=== PATIENT | female | born 1985 | race Caucasian/White ===

== ENCOUNTER 2017-06-30 17:56 | Emergency (ER) | payer MEDICAID ==
[~2017-06-30] VITALS: Ht 149.9 cm; Wt 99.8 kg
[~2017-06-30 17:56] MED LIST: ACDPT PO; ACHD5005 PO; ACHYD1T PO; AGM875T PO; ALPR0.25 PO; AMOX500C2 PO; ASPI1TAB17 PO; BSP10T PO; CHLO100T22 PO; CLIN300C3 PO; CLOT15CR6 TOP; CPR500T PO; CYCL10TA9; DCS100C PO; DICL25CA4 PO; FLUO10CA19 PO; FLUO20CA42 PO; FLUO40CA12 PO; HYDR-1231 PO; HYDR-34 PO; HYDR-757 PO; HYDR-91 PO; HYDR1TAB PO; IBP200T PO; IBP600T1 PO; IBP800T PO; IBUP800T26 PO; KETO75CA PO; NAPR-243 PO; NITR100C3; PREN1TAB39 PO; PREN1TAB71 PO; SULF-222 PO; SULF1TAB35 PO; SULF1TAB38 PO; TRAM50TA2; TRAZ-144 PO; TRAZ150T42 PO; ZLP10T PO
[2017-06-30] MEDS ORDERED: KETOROLAC 60 MG/2 ML VIAL IM STA (18:17)
--- NOTE | 2017-06-30 18:39 | ED EENT ---
History of Present Illness General Chief Complaint: Facial Problems Stated Complaint: POSSIBLE MRSA Nursing Triage Note: pt presents to ed with l sided facial pain/swelling x3 days. reports she had a pimple under her l nare and got alot of drainage from it. Source: patient Exam Limitations: no limitations History of Present Illness Date Seen by Provider: Jun 30, 2017 Time Seen by Provider: 18:39 Initial Comments 32-year-old female patient presents to the emergency department complaints of left-sided facial pain and swelling for 3 days. Patient denies fevers. Patient has a history of similar symptoms and of MRSA. Denies difficulty swallowing or difficulty breathing. Timing/Duration: abrupt Severity: moderate Location: other (3 onset) Prearrival Treatment: over the counter meds Modifying Factors: Worse With Other (worse with palpation) Allergies and Home Medications Allergies Coded Allergies: No Known Drug Allergies (Unverified , 04/20/13) Home Medications Amoxicillin 500 Mg Capsule, 1,000 MG PO BID Prescribed by: TAMY CUNHA on 06/30/171945 Fluoxetine HCl 40 Mg Capsule, 40 MG PO DAILY, (Reported) Hydrocodone/Acetaminophen 1 Each Tablet, 1 EACH PO Q4H PRN for PAIN Do not fill unless Bactrim is also filled Prescribed by: MAIRA CABRERA on 10/10/151543 Hydrocodone/Acetaminophen 1 Each Tablet, 1 EACH PO Q4H PRN for PAIN Prescribed by: MAIRA CABRERA on 01/31/162019 Sulfamethoxazole/Trimethoprim 1 Each Tablet, 1 EACH PO BID Prescribed by: MAIRA CABRERA on 10/10/151543 Sulfamethoxazole/Trimethoprim 1 Each Tablet, 1 EACH PO BID Prescribed by: MAIRA CABRERA on 01/31/162019 Sulfamethoxazole/Trimethoprim 1 Each Tablet, 2 EACH PO BID Prescribed by: TAMY CUNHA on 06/30/171943 Tramadol HCl 50 Mg Tablet, 50 MG PO Q4H PRN for pain Prescribed by: TAMY CUNHA on 06/30/171943 Review of Systems Constitutional: No chills, No fever, No malaise Eyes: No Symptoms Reported Ears: No Symptoms Reported Nose: see HPI, other (pimple inferior to the left nare with drainage) Mouth: see HPI, pain (left upper teeth), denies other (swelling left upper gums ) Throat: no symptoms reported Respiratory: no symptoms reported Cardiovascular: no symptoms reported Gastrointestinal: no symptoms reported Musculoskeletal: no symptoms reported Skin: see HPI Neurological: No Symptoms Reported All Other Systems Reviewed Negative Unless Noted: Yes (Negative excepted noted.) Past Gdrbmfb-Uxbocl-Bsshry Hx Patient Social History Alcohol Use: Denies Use Recreational Drug Use: No Type Used: Cigarettes Recent Foreign Travel: No Contact w/Someone Who Travel: No Recent Infectious Disease Expo: No Recent Hopitalizations: No Physical Abuse: No Sexual Abuse: No Mistreated: No Fear: No Immunizations Up To Date Tetanus Booster (TDap): Less than 5yrs Date of Influenza Vaccine: Dec 04, 2013 Surgeries History of Surgeries: Yes (facial cellulitis debridement) Surgeries: Orthopedic, Tonsillectomy Respiratory History of Respiratory Disorde: No Cardiovascular History of Cardiac Disorders: No Neurological History of Neurological Disord: No Reproductive System Hx Reproductive Disorders: No Sexually Transmitted Disease: No HIV/AIDS: No Female Reproductive Disorders: Denies Gastrointestinal History of Gastrointestinal Di: No Musculoskeletal History of Musculoskeletal Dis: No Endocrine History of Endocrine Disorders: No Cancer History of Cancer: No Psychosocial History of Psychiatric Problem: Yes Behavioral Health Disorders: PTSD, Bipolar Suicide Risk Score: 0 Integumentary History of Skin or Integumenta: Yes (MRSA) Blood Transfusions History of Blood Disorders: No Reviewed Nursing Assessment Reviewed/Agree w Nursing PMH: Yes Family Medical History Significant Family History: No Pertinent Family Hx Family Medial History: Diabetes mellitus 19 MOTHER FH: mental illness Hypertension 19 MOTHER No Family History of: AIDS Abdominal aortic aneurysm [place]fort's disease Alcoholism Alzheimer's disease Aphasia Arthritis Asthma Cancer of mouth Cardiovascular disease Cataracts Colon cancer Completed stroke Congenital disease Congenital heart disease Coronary thrombosis Cystic fibrosis Deafness or hearing loss Dementia Drug abuse Dysphasia Fibrocystic disease of breast Gastroenteritis Glaucoma Headache disorder Hypercholesterolemia Infertility Kidney disease Myocardial infarction Neoplasm Not obtainable due to adoption Osteoporosis Parkinson's disease Prostate cancer Psychosocial problem Respiratory disorder Seizure disorder Severe allergy Thyroid disease Tuberculosis Visual disorder Physical Exam Vital Signs Vital Signs - First Documented 06/30/17 18:07 Temp 97.4 Pulse 120 Resp 18 B/P (MAP) 127/99 (108) Pulse Ox 98 General Appearance: WD/WN, no apparent distress Eyes: bilateral eye normal inspection, bilateral eye PERRL, bilateral eye EOMI Ears: bilateral ear auricle normal, bilateral ear canal normal, bilateral ear TM normal Nose: other (mild erythema, swelling and induration inferior to the left nare without drainage. No evidence of fluctuance. Mild tenderness noted.) Mouth/Throat: pharynx normal, No dental tenderness, No excessive drooling, mandibular swelling (left mandibular swelling), maxillary swelling (left maxillary swelling), No trismus, No uvula swelling, No voice changes, other ( left facial swelling with mild erythema. 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 The complete inferior extent of the mandible is not included in the [id number]. The temporomandibular joints are normally aligned. The mandible is intact. There is no identified cortical or aggressive bone destruction. There is no periosteal reaction. The paranasal sinuses are well aerated without air-fluid level or frothy secretions. There is no mucosal thickening of the paranasal sinuses. The mastoid air cells and middle ears are well aerated bilaterally. The orbits are unremarkable in appearance. There is inflammatory stranding to the left of midline at the level of the mandible/maxilla. There is motion artifact at this level. There is no identified periapical lucency. There is no identified focus of soft tissue gas. There is no clearly identified drainable fluid collection on limited noncontrast assessment. There is no identified radiopaque foreign body. IMPRESSION: 1. Inflammatory stranding within the subcutaneous tissues to the left of midline at the level of the mandible/maxilla. This is not specific but may relate to cellulitis. 2. No clearly identified focal drainable fluid collection on noncontrast assessment which does reduce sensitivity for detection. 3. No CT evidence of osteomyelitis. 4. No identified periapical cyst. 5. No identified radiopaque foreign body. Dictated by: Dictated on workstation # [id number] Reviewed: Reviewed by Me (radiology report reviewed by me) Departure Communication (Admissions) Progress Notes Diagnostic findings discussed with the patient. Patient was given 1 dose of Toradol 60 mg IM, Bactrim DS, Cleocin, and a take-home pack of tramadol. Plan for discharge to home. Patient to follow-up with her PCP for recheck and further management. Impression Impression: Primary Impression: Cellulitis of face Disposition: HOME, SELF-CARE Condition: Improved Departure-Patient Inst. Decision time for Depature: 19:42 [place]: [facility] [place] (PCP/Family) Primary Care Physician Patient Instructions: Cellulitis (Skin Infection), Adult (DC) Add. Discharge Instructions: All discharge instructions reviewed with patient and/or family. Voiced understanding. Medications as instructed. Tylenol Extra Strength over-the- counter as directed for pain. Ibuprofen 800 mg by mouth every 8 hours as needed for pain. Ice pack for heating pads as needed. Follow-up with your family practitioner in the next 1-2 days for recheck, call first thing in the morning for appointment time. Return in the emergency department for worsened symptoms, fever, difficulty swallowing, difficulty breathing, or any other concerns. Scripts Amoxicillin (Amoxicillin) 500 Mg Capsule 1000 MG PO BID, #28 CAP 0 Refills Prov: TAMY CUNHA 06/30/17 Tramadol HCl (Tramadol HCl) 50 Mg Tablet 50 MG PO Q4H Y for pain, #14 TAB 0 Refills Prov: TAMY CUNHA 06/30/17 Sulfamethoxazole/Trimethoprim (Bactrim Ds Tablet) 1 Each Tablet 2 EACH PO BID, #28 TAB 0 Refills Prov: TAMY CUNHA 06/30/17 Work/School Note: Work Release Form Date Seen in the Emergency Department: Jun 30, 2017 Return to Work: Jul 02, 2017 TAMY CUNHA Jun 30, 2017 18:39
--- NOTE | 2017-06-30 19:34 | Diagnostic Imaging Report ---
PROCEDURE: CT maxillofacial without contrast. TECHNIQUE: Multiple contiguous axial images were obtained through the facial bones without the use of intravenous contrast. DATE: 06/30/2017. INDICATION: 32-year-old female, evaluation for MRSA infection. COMPARISON: CT maxillofacial area 03/06/2012. CT neck with contrast 10/10/2015. FINDINGS: Sensitivity for identification of abscess is reduced with the lack of intravenous contrast. The complete inferior extent of the mandible is not included in the [id number]. The temporomandibular joints are normally aligned. The mandible is intact. There is no identified cortical or aggressive bone destruction. There is no periosteal reaction. The paranasal sinuses are well aerated without air-fluid level or frothy secretions. There is no mucosal thickening of the paranasal sinuses. The mastoid air cells and middle ears are well aerated bilaterally. The orbits are unremarkable in appearance. There is inflammatory stranding to the left of midline at the level of the mandible/maxilla. There is motion artifact at this level. There is no identified periapical lucency. There is no identified focus of soft tissue gas. There is no clearly identified drainable fluid collection on limited noncontrast assessment. There is no identified radiopaque foreign body. IMPRESSION: 1. Inflammatory stranding within the subcutaneous tissues to the left of midline at the level of the mandible/maxilla. This is not specific but may relate to cellulitis. 2. No clearly identified focal drainable fluid collection on noncontrast assessment which does reduce sensitivity for detection. 3. No CT evidence of osteomyelitis. 4. No identified periapical cyst. 5. No identified radiopaque foreign body. Dictated by: Dictated on workstation # [id number]
[2017-06-30] MEDS ORDERED: TRAM50TA2 PO (19:44)
[2017-06-30] MEDS ORDERED: SULF1TAB35 PO (19:44)
[2017-06-30] MEDS ORDERED: RX-TRAMADOL 50 MG (ULTRAM) TAB PPK#4 PO STA (19:44)
[2017-06-30] MEDS ORDERED: CLINDAMYCIN 150 MG (CLEOCIN) CAP PO ONE (19:45)
[2017-06-30] MEDS ORDERED: TRIM/SULFAMETH 160/800 (SEPTRA DS) TAB PO ONE (19:45)
[2017-06-30] MEDS ORDERED: AMOX500C2 PO (19:46)
[2017-06-30 19:55] VITALS: BP 123/87
== END 2017-06-30 19:55 | disposition home or self-care (01) ==
LOC: EDUNIT# 17:56 → ER 17:58
DX: L03.211 Cellulitis of face (principal); F43.10 Post-traumatic stress disorder, unspecified; F31.9 Bipolar disorder, unspecified; Z86.14 Personal history of Methicillin resistant Staphylococcus aureus infection; Z90.89 Acquired absence of other organs
CPT/HCPCS: 70486; 96372